=== PATIENT | female | born 1945 | race Caucasian/White ===

== ENCOUNTER 2016-04-03 16:55 | Inpatient (IN) | payer OTHER ==
[~2016-04-03] VITALS: Ht 160 cm; Wt 70.9 kg
[~2016-04-03 16:55] MED LIST: ADVAIR 250/501 DISK IH; AMLODIPINE BESYL5 MG PO; AZITHROMYCIN500 M1 PO; CALCIUM 500 MG1 EACH PO; LEVAQUIN750 MG PO; LISINOPRIL20 MG PO; LITE COAT ASPI325 M1 PO; ONE DAILY1 EAC3 PO; PREDNISONE10 MG PO; PROVENTIL,2.5 MG/3 M IH; RANITIDINE HCL150 MG PO; SPIRIVA1 INHALATI IH; VITAMIN B-6100 MG PO; VITAMIN B12 100MCG PO; VITAMIN D31000 UNIT PO
[2016-04-03 17:20] LABS: MCH 28.7 PG (29.0-34.0); MCHC 33.8 G/DL (30.0-36.0); MCV 84.8 FL (83-99); MEAN PLAT.VOLUME 9.1 uM^3 (9.5-12.4); PLATELET COUNT 390 K/uL (156-360); RBC DIS.WIDTH-CV 13.8 % (11.8-14.6); RBC DIS.WIDTH-SD 42.5 % (39-53); RED BLOOD COUNT 4.95 M/uL (3.80-5.20); WHITE BLOOD COUNT 8.8 K/uL (4.1-10.2)
[2016-04-03 17:30] LABS: BASOPHIL COUNT 0.1 K/uL (0-0.1); EOSINOPHIL (%) 2.2 % (0-5); EOSINOPHIL COUNT 0.2 K/uL (0-0.3); IMMATURE GRANULOCYTE (%) 0.2 % (0.0-0.7); IMMATURE GRANULOCYTE COUNT 0.2 K/uL; LYMPHOCYTE COUNT 1.7 K/uL (1.0-2.8); NEUTROPHIL (%) 66.2 % (45-76); NEUTROPHIL COUNT 5.8 K/uL (1.8-6.4)
[2016-04-03 17:31] LABS: CHLORIDE 105 mEq/L (99-109); POTASSIUM 4.2 mEq/L (3.7-5.4); SODIUM 137 mEq/L (136-147)
[2016-04-03 17:33] LABS: GLUCOSE 107 mg/dL (70-99)
[2016-04-03 17:38] LABS: D-DIMER ELISA 0.43 mg/L FEU (< 0.57)
[2016-04-03 17:40] LABS: BASE EXCESS 0 mEq/L (-3 to +3); BICARBONATE 23.9 mEq/L (22-26); CARBOXY HGB 2.8 % (0-5); METHEMOGLOBIN 1.1 % (0-1.5); PCO2 36 mm Hg (35-45); PO2 59 mm Hg (80-100); pH 7.43 (7.35-7.45)
[2016-04-03 17:41] LABS: COMMENTS - BLOOD GASES A+C+; DEVICE NC; MECHANICAL RATE 22 resp/min; O2 FLOW 3 L/MIN; SITE LR
[2016-04-03 17:42] LABS: ALKALINE PHOSPHATASE 71 IU/L (3-129); GFR ESTIMATE (CALCULATED) > 59 mL/min/; TROP-I INTERPRETATION NEGATIVE; TROPONIN-I < 0.01 ng/mL (0.0-0.30)
[2016-04-03 17:43] LABS: DIRECT BILIRUBIN 0.2 mg/dL (0.0-0.3); UREA NITROGEN (BUN) 14 mg/dL (9-23)
[2016-04-03 17:50] LABS: ANION GAP 12 MEQ/L (2-14)
[2016-04-03 18:01] LABS: TOTAL BILIRUBIN 0.3 mg/dL (0.0-1.0)
[2016-04-03] MEDS ORDERED: LEVAQUIN500 MG PO (19:47)
[2016-04-03] MEDS ORDERED: NORVASC10 MG PO (19:48)
[2016-04-03] MEDS ORDERED: SIMVASTATIN20 MG PO (19:52)
[2016-04-03] MEDS ORDERED: MONTELUKAST SOD10 MG PO (19:53)
[2016-04-03] MEDS ORDERED: SPIRIVA1 INHALATI IH (19:53)
[2016-04-03] MEDS ORDERED: VENTOLIN HFA18 GM IH (19:54)
[2016-04-03 21:02] VITALS: BP 135/56
[2016-04-03 21:32] VITALS: BP 125/62
[2016-04-03 22:03] VITALS: BP 122/56
[2016-04-03 22:32] VITALS: BP 139/57
[2016-04-03 23:02] VITALS: BP 125/68
[2016-04-04] VITALS: BP 136/65
[2016-04-04 01:51] LABS: INFLUENZA A VIRAL ANTIGEN NEGATIVE; INFLUENZA B VIRAL ANTIGEN NEGATIVE
[2016-04-04 04:04] VITALS: BP 136/64
[2016-04-04 07:53] LABS: INTERNAL CONTROL VALID? YES
[2016-04-04 08:24] VITALS: BP 142/66
[2016-04-04 08:27] LABS: EOSINOPHIL (%) 0 % (0-5); HEMATOCRIT 39.2 % (36.0-46.0); IMMATURE GRANULOCYTE (%) 0.2 % (0.0-0.7); LYMPHOCYTE COUNT 0.5 K/uL (1.0-2.8); MCH 28.7 PG (29.0-34.0); MCHC 33.4 G/DL (30.0-36.0); MCV 85.8 FL (83-99); MEAN PLAT.VOLUME 9.5 uM^3 (9.5-12.4); MONOCYTE (%) 0.7 % (3-12); MONOCYTE COUNT 0.1 K/uL (0-0.8); NEUTROPHIL COUNT 8.2 K/uL (1.8-6.4); PLATELET COUNT 378 K/uL (156-360); RBC DIS.WIDTH-CV 13.9 % (11.8-14.6); RBC DIS.WIDTH-SD 43.3 % (39-53); RED BLOOD COUNT 4.57 M/uL (3.80-5.20); WHITE BLOOD COUNT 8.8 K/uL (4.1-10.2)
[2016-04-04 08:49] LABS: ANION GAP 11 MEQ/L (2-14); CHLORIDE 103 MEQ/L (99-109); GFR ESTIMATE (CALCULATED) > 59 mL/min/; POTASSIUM 4.5 MEQ/L (3.7-5.4); SAMPLE HEMOLYSIS CHECK 0; SAMPLE ICTERIC CHECK 0; SAMPLE LIPEMIA CHECK 0; SODIUM 135 MEQ/L (136-147); UREA NITROGEN (BUN) 20 mg/dL (9-23)
[2016-04-04 08:50] LABS: GLUCOSE 177 mg/dL (70-99)
[2016-04-04 12:49] VITALS: BP 152/69
[2016-04-04 17:12] VITALS: BP 140/66
[2016-04-04 20:20] VITALS: BP 141/64
[2016-04-05 00:23] VITALS: BP 144/64
[2016-04-05 03:20] VITALS: BP 139/63
[2016-04-05 08:09] VITALS: BP 135/69
[2016-04-05 11:31] VITALS: BP 130/60
[2016-04-05 16:14] VITALS: BP 124/58
[2016-04-05 20:00] VITALS: BP 120/56
[2016-04-06] VITALS: BP 122/59
[2016-04-06 04:00] VITALS: BP 116/57
[2016-04-06 07:35] LABS: EOSINOPHIL (%) 0 % (0-5); HEMATOCRIT 37.5 % (36.0-46.0); IMMATURE GRANULOCYTE (%) 0.4 % (0.0-0.7); IMMATURE GRANULOCYTE COUNT 0.1 K/uL; LYMPHOCYTE COUNT 0.5 K/uL (1.0-2.8); MCH 28.5 PG (29.0-34.0); MCHC 32.8 G/DL (30.0-36.0); MEAN PLAT.VOLUME 9.7 uM^3 (9.5-12.4); MONOCYTE (%) 4.2 % (3-12); MONOCYTE COUNT 0.6 K/uL (0-0.8); NEUTROPHIL (%) 91.6 % (45-76); NEUTROPHIL COUNT 13.2 K/uL (1.8-6.4); PLATELET COUNT 348 K/uL (156-360); RBC DIS.WIDTH-CV 14.4 % (11.8-14.6); RBC DIS.WIDTH-SD 45.7 % (39-53); RED BLOOD COUNT 4.31 M/uL (3.80-5.20)
[2016-04-06 07:39] LABS: WHITE BLOOD COUNT 14.4 K/uL (4.1-10.2)
[2016-04-06 07:41] LABS: ANION GAP 9 MEQ/L (2-14); CHLORIDE 104 MEQ/L (99-109); GFR ESTIMATE (CALCULATED) > 59 mL/min/; GLUCOSE 124 mg/dL (70-99); POTASSIUM 4.6 MEQ/L (3.7-5.4); SAMPLE HEMOLYSIS CHECK 0; SAMPLE ICTERIC CHECK 0; SAMPLE LIPEMIA CHECK 0; SODIUM 137 MEQ/L (136-147); UREA NITROGEN (BUN) 23 mg/dL (9-23)
[2016-04-06 09:37] VITALS: BP 140/64
[2016-04-06 11:30] VITALS: BP 133/59
[2016-04-06] MEDS ORDERED: AUGMENTIN875 MG PO (12:30)
[2016-04-06] MEDS ORDERED: AZITHROMYCIN500 M1 PO (12:30)
== END 2016-04-06 16:35 | disposition home health service (06) | DRG 190 ==
LOC: EME 16:55 → EDOF 20:39 → 4SOUTH 20:39
PROVIDERS: Emergency Medicine; Internal Medicine
DX: J44.0 Chronic obstructive pulmonary disease with (acute) lower respiratory infection (principal); J18.9 Pneumonia, unspecified organism; J44.1 Chronic obstructive pulmonary disease with (acute) exacerbation; J96.01 Acute respiratory failure with hypoxia; J45.901 Unspecified asthma with (acute) exacerbation; I10 Essential (primary) hypertension; E78.5 Hyperlipidemia, unspecified; K21.9 Gastro-esophageal reflux disease without esophagitis; E78.00 Pure hypercholesterolemia, unspecified; I25.10 Atherosclerotic heart disease of native coronary artery without angina pectoris; F17.200 Nicotine dependence, unspecified, uncomplicated; Z66 Do not resuscitate; Z85.42 Personal history of malignant neoplasm of other parts of uterus
CPT/HCPCS: 36600; 71010; 71020; 80048; 80076; 82803; 83605; 83880; 84484; 85025; 85027; 85379; 87040; 87070; 87205; 87449; 87502; 92610 GN; 93005; 94640; 94640 76; 94644; 94799; 99202; 99281; 99285; J0456; J0692; J0696; J1100; J1644; J2920; J2930; J7050

== ENCOUNTER 2016-06-02 19:02 | Inpatient (IN) | payer OTHER ==
[~2016-06-02] VITALS: Ht 160 cm; Wt 71.9 kg
[~2016-06-02 19:02] MED LIST changes: +AUGMENTIN875 MG PO; +LEVAQUIN500 MG PO; +MONTELUKAST SOD10 MG PO; +NORVASC10 MG PO; +SIMVASTATIN20 MG PO; +VENTOLIN HFA18 GM IH
[2016-06-02 19:49] LABS: HEMATOCRIT 43.5 % (36.0-46.0); MCH 28.9 PG (29.0-34.0); MCHC 33.8 G/DL (30.0-36.0); MCV 85.6 FL (83-99); MEAN PLAT.VOLUME 9.1 uM^3 (9.5-12.4); PLATELET COUNT 434 K/uL (156-360); RBC DIS.WIDTH-CV 13.6 % (11.8-14.6); RBC DIS.WIDTH-SD 42.5 % (39-53); RED BLOOD COUNT 5.08 M/uL (3.80-5.20); WHITE BLOOD COUNT 9.8 K/uL (4.1-10.2)
[2016-06-02 20:10] LABS: CHLORIDE 104 mEq/L (99-109); SODIUM 140 mEq/L (136-147)
[2016-06-02 20:12] LABS: GLUCOSE 123 mg/dL (70-99)
[2016-06-02 20:13] LABS: ANION GAP 13 MEQ/L (2-14)
[2016-06-02 20:16] LABS: GFR ESTIMATE (CALCULATED) > 59 mL/min/
[2016-06-02 20:17] LABS: UREA NITROGEN (BUN) 10 mg/dL (9-23)
[2016-06-02 20:24] LABS: TROP-I INTERPRETATION NEGATIVE; TROPONIN-I < 0.01 ng/mL (0.0-0.30)
[2016-06-02] MEDS ORDERED: LOVASTATIN40 MG PO (21:26)
[2016-06-02 23:16] VITALS: BP 161/69
[2016-06-03] VITALS (7 sets, daily range): BP systolic 129–151; BP diastolic 58–67
[2016-06-04] VITALS (7 sets, daily range): BP systolic 109–152; BP diastolic 53–72
[2016-06-04 07:30] LABS: EOSINOPHIL (%) 0 % (0-5); IMMATURE GRANULOCYTE (%) 0.4 % (0.0-0.7); IMMATURE GRANULOCYTE COUNT 0.1 K/uL; INSTRUMENT ABS NEUTROPHIL CT 14.7 K/uL; LYMPHOCYTE COUNT 0.7 K/uL (1.0-2.8); MCH 29.1 PG (29.0-34.0); MCHC 33.4 G/DL (30.0-36.0); MCV 87.2 FL (83-99); MEAN PLAT.VOLUME 9.4 uM^3 (9.5-12.4); MONOCYTE COUNT 0.3 K/uL (0-0.8); NEUTROPHIL (%) 93.2 % (45-76); NEUTROPHIL COUNT 14.7 K/uL (1.8-6.4); PLATELET COUNT 384 K/uL (156-360); RBC DIS.WIDTH-CV 14.5 % (11.8-14.6); RBC DIS.WIDTH-SD 46.5 % (39-53); RED BLOOD COUNT 4.36 M/uL (3.80-5.20)
[2016-06-04 07:37] LABS: ALKALINE PHOSPHATASE 62 IU/L (3-129); ANION GAP 10 MEQ/L (2-14); CHLORIDE 105 MEQ/L (99-109); GFR ESTIMATE (CALCULATED) > 59 mL/min/; GLUCOSE 156 mg/dL (70-99); POTASSIUM 4.3 MEQ/L (3.7-5.4); SAMPLE HEMOLYSIS CHECK 0; SAMPLE ICTERIC CHECK 0; SAMPLE LIPEMIA CHECK 0; SODIUM 138 MEQ/L (136-147); TOTAL BILIRUBIN 0.3 MG/DL (0.0-1.0); UREA NITROGEN (BUN) 16 mg/dL (9-23)
[2016-06-04 07:49] LABS: WHITE BLOOD COUNT 15.8 K/uL (4.1-10.2)
[2016-06-05 06:47] VITALS: BP 122/57
[2016-06-05 07:22] LABS: EOSINOPHIL (%) 0 % (0-5); HEMATOCRIT 39.5 % (36.0-46.0); IMMATURE GRANULOCYTE COUNT 0.2 K/uL; LYMPHOCYTE COUNT 0.7 K/uL (1.0-2.8); MCH 28.8 PG (29.0-34.0); MCHC 33.2 G/DL (30.0-36.0); MCV 86.8 FL (83-99); MEAN PLAT.VOLUME 9.2 uM^3 (9.5-12.4); MONOCYTE (%) 4.1 % (3-12); MONOCYTE COUNT 0.6 K/uL (0-0.8); NEUTROPHIL (%) 90.3 % (45-76); PLATELET COUNT 408 K/uL (156-360); RBC DIS.WIDTH-CV 14.5 % (11.8-14.6); RBC DIS.WIDTH-SD 46.1 % (39-53); RED BLOOD COUNT 4.55 M/uL (3.80-5.20); WHITE BLOOD COUNT 15.5 K/uL (4.1-10.2)
[2016-06-05 07:33] LABS: ALKALINE PHOSPHATASE 56 IU/L (3-129); ANION GAP 9 MEQ/L (2-14); CHLORIDE 103 MEQ/L (99-109); GFR ESTIMATE (CALCULATED) > 59 mL/min/; GLUCOSE 145 mg/dL (70-99); POTASSIUM 4.5 MEQ/L (3.7-5.4); SAMPLE HEMOLYSIS CHECK 0; SAMPLE ICTERIC CHECK 0; SAMPLE LIPEMIA CHECK 0; SODIUM 139 MEQ/L (136-147); TOTAL BILIRUBIN 0.3 MG/DL (0.0-1.0); UREA NITROGEN (BUN) 21 mg/dL (9-23)
[2016-06-05 11:19] VITALS: BP 133/63
[2016-06-05 15:49] VITALS: BP 142/65
[2016-06-05 20:18] VITALS: BP 132/78
[2016-06-06 00:05] VITALS: BP 141/65
[2016-06-06 06:43] LABS: EOSINOPHIL (%) 0 % (0-5); HEMATOCRIT 36.5 % (36.0-46.0); IMMATURE GRANULOCYTE COUNT 0.1 K/uL; INSTRUMENT ABS NEUTROPHIL CT 9.8 K/uL; LYMPHOCYTE COUNT 0.6 K/uL (1.0-2.8); MCHC 33.4 G/DL (30.0-36.0); MCV 86.7 FL (83-99); MEAN PLAT.VOLUME 9.3 uM^3 (9.5-12.4); MONOCYTE (%) 5.6 % (3-12); MONOCYTE COUNT 0.6 K/uL (0-0.8); NEUTROPHIL (%) 88.3 % (45-76); NEUTROPHIL COUNT 9.8 K/uL (1.8-6.4); PLATELET COUNT 379 K/uL (156-360); RBC DIS.WIDTH-CV 14.4 % (11.8-14.6); RBC DIS.WIDTH-SD 45.9 % (39-53); RED BLOOD COUNT 4.21 M/uL (3.80-5.20); WHITE BLOOD COUNT 11.1 K/uL (4.1-10.2)
[2016-06-06 07:10] VITALS: BP 125/58
[2016-06-06 07:14] LABS: ANION GAP 10 MEQ/L (2-14); CHLORIDE 104 MEQ/L (99-109); GFR ESTIMATE (CALCULATED) > 59 mL/min/; GLUCOSE 119 mg/dL (70-99); POTASSIUM 4.4 MEQ/L (3.7-5.4); SAMPLE HEMOLYSIS CHECK 0; SAMPLE ICTERIC CHECK 0; SAMPLE LIPEMIA CHECK 0; SODIUM 138 MEQ/L (136-147); UREA NITROGEN (BUN) 22 mg/dL (9-23)
[2016-06-06 11:02] VITALS: BP 158/69
[2016-06-06 16:09] VITALS: BP 168/74
[2016-06-07 00:48] VITALS: BP 163/68
[2016-06-07 02:30] VITALS: BP 135/78
[2016-06-07 07:51] VITALS: BP 135/63
[2016-06-07 08:20] LABS: EOSINOPHIL (%) 0 % (0-5); IMMATURE GRANULOCYTE (%) 1.4 % (0.0-0.7); IMMATURE GRANULOCYTE COUNT 0.2 K/uL; INSTRUMENT ABS NEUTROPHIL CT 9.8 K/uL; MCH 29.1 PG (29.0-34.0); MCHC 33.5 G/DL (30.0-36.0); MCV 86.9 FL (83-99); MEAN PLAT.VOLUME 9.5 uM^3 (9.5-12.4); MONOCYTE (%) 9.1 % (3-12); MONOCYTE COUNT 1.1 K/uL (0-0.8); NEUTROPHIL (%) 81.3 % (45-76); NEUTROPHIL COUNT 9.8 K/uL (1.8-6.4); PLATELET COUNT 402 K/uL (156-360); RBC DIS.WIDTH-CV 14.4 % (11.8-14.6); RBC DIS.WIDTH-SD 46.2 % (39-53); RED BLOOD COUNT 4.26 M/uL (3.80-5.20)
[2016-06-07 08:40] LABS: ANION GAP 10 MEQ/L (2-14); CHLORIDE 103 MEQ/L (99-109); GFR ESTIMATE (CALCULATED) > 59 mL/min/; GLUCOSE 101 mg/dL (70-99); POTASSIUM 4.2 MEQ/L (3.7-5.4); SAMPLE HEMOLYSIS CHECK 0; SAMPLE ICTERIC CHECK 0; SAMPLE LIPEMIA CHECK 0; SODIUM 139 MEQ/L (136-147); UREA NITROGEN (BUN) 22 mg/dL (9-23)
[2016-06-07] MEDS ORDERED: CEFTIN500 MG PO (10:22)
[2016-06-07] MEDS ORDERED: PREDNISONE10 MG PO (10:22)
[2016-06-07] MEDS ORDERED: PROVENTIL,2.5 MG/3 M IH (11:16)
== END 2016-06-07 14:30 | disposition home or self-care (01) | DRG 190 ==
LOC: EME 19:02 → EDOF 21:31 → 5WEST 22:52 → 2EAST 06-03 08:52
PROVIDERS: Hospitalist
DX: J44.0 Chronic obstructive pulmonary disease with (acute) lower respiratory infection (principal); J96.01 Acute respiratory failure with hypoxia; J98.11 Atelectasis; I10 Essential (primary) hypertension; J20.9 Acute bronchitis, unspecified; I73.9 Peripheral vascular disease, unspecified; K21.9 Gastro-esophageal reflux disease without esophagitis; E78.5 Hyperlipidemia, unspecified; K44.9 Diaphragmatic hernia without obstruction or gangrene; Z99.81 Dependence on supplemental oxygen; Z87.891 Personal history of nicotine dependence; Z82.49 Family history of ischemic heart disease and other diseases of the circulatory system; Z82.3 Family history of stroke; Z80.42 Family history of malignant neoplasm of prostate
CPT/HCPCS: 71020; 71250; 80048; 80053; 83605; 84484; 85025; 85027; 87040; 87070; 87205; 93005; 94640; 94640 76; 94760; 94799; 99202; 99281; 99284; G0378; J0696; J2930; J7050; J7512

== ENCOUNTER 2016-09-12 16:14 | Inpatient (IN) | payer OTHER ==
[~2016-09-12] VITALS: Ht 160 cm; Wt 71.8 kg
[~2016-09-12 16:14] MED LIST changes: +CEFTIN500 MG PO; +LOVASTATIN40 MG PO
[2016-09-12 17:12] LABS: HEMATOCRIT 40.6 % (36.0-46.0); MCHC 33.7 G/DL (30.0-36.0); PLATELET COUNT 384 K/uL (156-360); RBC DIS.WIDTH-CV 13.7 % (11.8-14.6); RBC DIS.WIDTH-SD 43.7 % (39-53); RED BLOOD COUNT 4.72 M/uL (3.80-5.20); WHITE BLOOD COUNT 5.4 K/uL (4.1-10.2)
[2016-09-12 17:21] LABS: CHLORIDE 104 mEq/L (99-109); POTASSIUM 4.3 mEq/L (3.7-5.4); SODIUM 137 mEq/L (136-147)
[2016-09-12 17:24] LABS: GLUCOSE 168 mg/dL (70-99)
[2016-09-12 17:25] LABS: ANION GAP 10 MEQ/L (2-14); TOTAL BILIRUBIN 0.4 mg/dL (0.0-1.0)
[2016-09-12 17:27] LABS: ALKALINE PHOSPHATASE 75 IU/L (3-129); GFR ESTIMATE (CALCULATED) 58 mL/min/
[2016-09-12 17:28] LABS: UREA NITROGEN (BUN) 10 mg/dL (9-23)
[2016-09-12 17:31] LABS: LIPASE 17 U/L (1.0-51.0)
[2016-09-12 17:33] LABS: TROP-I INTERPRETATION NEGATIVE; TROPONIN-I < 0.01 ng/mL (0.0-0.30)
[2016-09-12] MEDS ORDERED: DUONEB 2.5-0.5 M3 ML AEROSOL (19:49)
[2016-09-12] MEDS ORDERED: BREO ELLIPTA I1 EACH IH (19:50)
[2016-09-12] MEDS ORDERED: INCRUSE ELLI62.5 MCG IH (19:50)
[2016-09-12 19:51] LABS: ADD MIUA? YES; BILIRUBIN NEGATIVE; BLOOD NEGATIVE; COLOR STRAW ((YELLOW)); GLUCOSE (STRIP) NEGATIVE; KETONES NEGATIVE; LEUKOCYTES TRACE; NITRITE NEGATIVE; PROTEIN (STRIP) NEGATIVE; SPECIFIC GRAVITY 1.005 (1.000-1.030); UROBILINOGEN 0.2 MG/DL (0.2-1.0)
[2016-09-12] MEDS ORDERED: OMEPRAZOLE40 M1 PO (19:51)
[2016-09-12 19:54] LABS: BACTERIA NONE SEEN /HPF; EPITHELIAL CELLS RARE /HPF; MUCUS NONE SEEN /LPF; RED BLOOD CELLS 0-5 /HPF (0-5); UCUL ADDED? NO; WHITE BLOOD CELLS 0-5 /HPF (0-5)
[2016-09-12 21:42] LABS: D-DIMER ELISA 0.64 mg/L FEU (< 0.57)
[2016-09-12 22:50] VITALS: BP 182/85
[2016-09-13 04:00] VITALS: BP 125/58
[2016-09-13 06:43] LABS: HEMATOCRIT 39.4 % (36.0-46.0); MCH 29.9 PG (29.0-34.0); MCHC 34.3 G/DL (30.0-36.0); MCV 87.2 FL (83-99); MEAN PLAT.VOLUME 9.4 uM^3 (9.5-12.4); PLATELET COUNT 373 K/uL (156-360); RBC DIS.WIDTH-SD 44.7 % (39-53); RED BLOOD COUNT 4.52 M/uL (3.80-5.20)
[2016-09-13 07:49] VITALS: BP 125/59
[2016-09-13 08:22] LABS: ANION GAP 14 MEQ/L (2-14); CHLORIDE 99 MEQ/L (99-109); GFR ESTIMATE (CALCULATED) 58 mL/min/; GLUCOSE 175 mg/dL (70-99); POTASSIUM 4.9 MEQ/L (3.7-5.4); SAMPLE HEMOLYSIS CHECK 0; SAMPLE ICTERIC CHECK 0; SAMPLE LIPEMIA CHECK 0; SODIUM 134 MEQ/L (136-147); UREA NITROGEN (BUN) 14 mg/dL (9-23)
[2016-09-13 11:13] VITALS: BP 128/62
[2016-09-13 15:42] VITALS: BP 127/58
[2016-09-13 19:51] VITALS: BP 115/57
[2016-09-13 23:57] VITALS: BP 107/53
[2016-09-14 03:32] VITALS: BP 111/59
[2016-09-14 07:48] VITALS: BP 157/79
[2016-09-14] MEDS ORDERED: PREDNISONE10 MG PO ×3 (10:47→11:18)
[2016-09-14] MEDS ORDERED: LEVAQUIN250 MG PO ×3 (10:47→11:18)
== END 2016-09-14 13:21 | disposition home or self-care (01) | DRG 190 ==
LOC: EME 16:14 → EDOF 20:59 → 5SOUTH 22:30
PROVIDERS: Hospitalist; Physician Assistant
DX: J44.1 Chronic obstructive pulmonary disease with (acute) exacerbation (principal); J44.0 Chronic obstructive pulmonary disease with (acute) lower respiratory infection; J20.9 Acute bronchitis, unspecified; E78.5 Hyperlipidemia, unspecified; I10 Essential (primary) hypertension; I25.10 Atherosclerotic heart disease of native coronary artery without angina pectoris; K44.9 Diaphragmatic hernia without obstruction or gangrene; I73.9 Peripheral vascular disease, unspecified; J96.21 Acute and chronic respiratory failure with hypoxia; K21.9 Gastro-esophageal reflux disease without esophagitis; R00.0 Tachycardia, unspecified; Z87.891 Personal history of nicotine dependence; Z99.81 Dependence on supplemental oxygen; Z79.82 Long term (current) use of aspirin
CPT/HCPCS: 71010; 71020; 71275; 80048; 80053; 81003; 83690; 84484; 85027; 85379; 87070; 87205; 93005; 94640; 94640 76; 94799; 99202; 99281; 99285; J0696; J2930; J7050

== ENCOUNTER 2016-09-30 16:36 | Emergency (ER) | payer OTHER ==
[~2016-09-30] VITALS: Ht 160 cm; Wt 71.3 kg
[~2016-09-30 16:36] MED LIST changes: +BREO ELLIPTA I1 EACH IH; +DUONEB 2.5-0.5 M3 ML AEROSOL; +INCRUSE ELLI62.5 MCG IH; +LEVAQUIN250 MG PO; +OMEPRAZOLE40 M1 PO
[2016-09-30 17:42] LABS: HEMATOCRIT 40.5 % (36.0-46.0); MCH 28.8 PG (29.0-34.0); MCHC 33.6 G/DL (30.0-36.0); MCV 85.8 FL (83-99); MEAN PLAT.VOLUME 8.9 uM^3 (9.5-12.4); PLATELET COUNT 296 K/uL (156-360); RBC DIS.WIDTH-CV 14.1 % (11.8-14.6); RBC DIS.WIDTH-SD 44.4 % (39-53); RED BLOOD COUNT 4.72 M/uL (3.80-5.20); WHITE BLOOD COUNT 8.3 K/uL (4.1-10.2)
[2016-09-30 17:50] LABS: CHLORIDE 107 mEq/L (99-109); POTASSIUM 4.2 mEq/L (3.7-5.4); SODIUM 139 mEq/L (136-147)
[2016-09-30 17:51] LABS: GLUCOSE 185 mg/dL (70-99)
[2016-09-30 17:53] LABS: ANION GAP 12 MEQ/L (2-14)
[2016-09-30 17:55] LABS: GFR ESTIMATE (CALCULATED) 58 mL/min/
[2016-09-30 17:56] LABS: UREA NITROGEN (BUN) 16 mg/dL (9-23)
[2016-09-30 18:04] LABS: TROP-I INTERPRETATION NEGATIVE; TROPONIN-I < 0.01 ng/mL (0.0-0.30)
[2016-09-30] MEDS ORDERED: ALBUTEROL2.5 MG/3 M IH (20:28)
[2016-09-30] MEDS ORDERED: DOXYCYCLINE HY100 MG PO (20:28)
[2016-09-30] MEDS ORDERED: PREDNISONE20 MG PO (20:28)
[2016-09-30] MEDS ORDERED: VENTOLIN HFA18 GM IH (20:28)
[2016-09-30 20:52] LABS: TROP-I INTERPRETATION NEGATIVE; TROPONIN-I < 0.01 ng/mL (0.0-0.30)
[2016-09-30 21:40] VITALS: BP 131/63
== END 2016-09-30 21:40 | disposition home or self-care (01) ==
LOC: EME 16:36
PROVIDERS: Emergency Medicine
DX: J44.1 Chronic obstructive pulmonary disease with (acute) exacerbation (principal); J20.9 Acute bronchitis, unspecified; J44.0 Chronic obstructive pulmonary disease with (acute) lower respiratory infection; K21.9 Gastro-esophageal reflux disease without esophagitis; I10 Essential (primary) hypertension; Z87.891 Personal history of nicotine dependence
CPT/HCPCS: 71020; 80048; 84484; 85027; 93005; 94640; 99281; 99285; J7512

== ENCOUNTER 2016-12-04 01:11 | Inpatient (IN) | payer OTHER ==
[~2016-12-04] VITALS: Ht 160 cm; Wt 73.0 kg
[~2016-12-04 01:11] MED LIST changes: +ALBUTEROL2.5 MG/3 M IH; +DOXYCYCLINE HY100 MG PO; +PREDNISONE20 MG PO
[2016-12-04 02:06] LABS: HEMATOCRIT 38.4 % (36.0-46.0); MCH 29.1 PG (29.0-34.0); MCHC 33.9 G/DL (30.0-36.0); MCV 86.1 FL (83-99); MEAN PLAT.VOLUME 8.9 uM^3 (9.5-12.4); PLATELET COUNT 388 K/uL (156-360); RBC DIS.WIDTH-CV 14.6 % (11.8-14.6); RBC DIS.WIDTH-SD 45.8 % (39-53); RED BLOOD COUNT 4.46 M/uL (3.80-5.20); WHITE BLOOD COUNT 13.4 K/uL (4.1-10.2)
[2016-12-04 02:20] LABS: CHLORIDE 103 mEq/L (99-109); POTASSIUM 4.2 mEq/L (3.7-5.4); SODIUM 137 mEq/L (136-147)
[2016-12-04 02:22] LABS: GLUCOSE 145 mg/dL (70-99)
[2016-12-04 02:23] LABS: ANION GAP 14 MEQ/L (2-14)
[2016-12-04 02:25] LABS: GFR ESTIMATE (CALCULATED) 52 mL/min/
[2016-12-04 02:26] LABS: UREA NITROGEN (BUN) 15 mg/dL (9-23)
[2016-12-04 03:57] LABS: TROP-I INTERPRETATION NEGATIVE; TROPONIN-I < 0.01 ng/mL (0.0-0.30)
[2016-12-04] MEDS ORDERED: TESSALON200 MG PO (04:30)
[2016-12-04] MEDS ORDERED: AUGMENTIN875 MG PO (04:30)
[2016-12-04] MEDS ORDERED: PREDNISONE10 MG PO (04:30)
[2016-12-04 11:14] VITALS: BP 151/68
[2016-12-04 20:54] VITALS: BP 177/75
[2016-12-05 00:32] VITALS: BP 136/67
[2016-12-05 04:24] VITALS: BP 133/59
[2016-12-05 06:45] LABS: EOSINOPHIL (%) 0 % (0-5); HEMATOCRIT 36.3 % (36.0-46.0); IMMATURE GRANULOCYTE (%) 0.7 % (0.0-0.7); IMMATURE GRANULOCYTE COUNT 0.1 K/uL; INSTRUMENT ABS NEUTROPHIL CT 14.9 K/uL; LYMPHOCYTE COUNT 0.7 K/uL (1.0-2.8); MCH 29.9 PG (29.0-34.0); MCHC 34.2 G/DL (30.0-36.0); MCV 87.5 FL (83-99); MEAN PLAT.VOLUME 9.2 uM^3 (9.5-12.4); MONOCYTE (%) 3.5 % (3-12); MONOCYTE COUNT 0.6 K/uL (0-0.8); NEUTROPHIL (%) 91.5 % (45-76); NEUTROPHIL COUNT 14.9 K/uL (1.8-6.4); PLATELET COUNT 365 K/uL (156-360); RBC DIS.WIDTH-CV 14.9 % (11.8-14.6); RBC DIS.WIDTH-SD 47.8 % (39-53); RED BLOOD COUNT 4.15 M/uL (3.80-5.20); WHITE BLOOD COUNT 16.3 K/uL (4.1-10.2)
[2016-12-05 07:12] LABS: ALKALINE PHOSPHATASE 55 IU/L (3-129); ANION GAP 12 MEQ/L (2-14); CHLORIDE 99 MEQ/L (99-109); GFR ESTIMATE (CALCULATED) > 59 mL/min/; GLUCOSE 160 mg/dL (70-99); POTASSIUM 4.5 MEQ/L (3.7-5.4); SAMPLE HEMOLYSIS CHECK 0; SAMPLE ICTERIC CHECK 0; SAMPLE LIPEMIA CHECK 0; SODIUM 134 MEQ/L (136-147); TOTAL BILIRUBIN 0.3 MG/DL (0.0-1.0); UREA NITROGEN (BUN) 16 mg/dL (9-23)
[2016-12-05 09:40] VITALS: BP 134/60
[2016-12-05 11:51] VITALS: BP 145/66
[2016-12-05 13:25] LABS: INFLUENZA A VIRAL ANTIGEN NEGATIVE; INFLUENZA B VIRAL ANTIGEN NEGATIVE
[2016-12-05 16:48] VITALS: BP 117/57
[2016-12-05 20:02] VITALS: BP 157/58
[2016-12-06 00:17] VITALS: BP 126/53
[2016-12-06 06:10] LABS: EOSINOPHIL (%) 0 % (0-5); HEMATOCRIT 35.3 % (36.0-46.0); IMMATURE GRANULOCYTE COUNT 0.2 K/uL; LYMPHOCYTE COUNT 0.6 K/uL (1.0-2.8); MCH 28.9 PG (29.0-34.0); MCHC 33.4 G/DL (30.0-36.0); MCV 86.5 FL (83-99); MEAN PLAT.VOLUME 9.1 uM^3 (9.5-12.4); MONOCYTE (%) 2.6 % (3-12); MONOCYTE COUNT 0.5 K/uL (0-0.8); PLATELET COUNT 351 K/uL (156-360); RBC DIS.WIDTH-CV 14.7 % (11.8-14.6); RBC DIS.WIDTH-SD 47.1 % (39-53); RED BLOOD COUNT 4.08 M/uL (3.80-5.20); WHITE BLOOD COUNT 17.2 K/uL (4.1-10.2)
[2016-12-06 07:19] LABS: ANION GAP 9 MEQ/L (2-14); CHLORIDE 100 MEQ/L (99-109); GFR ESTIMATE (CALCULATED) 58 mL/min/; GLUCOSE 171 mg/dL (70-99); POTASSIUM 4.6 MEQ/L (3.7-5.4); SAMPLE HEMOLYSIS CHECK 0; SAMPLE ICTERIC CHECK 0; SAMPLE LIPEMIA CHECK 0; SODIUM 134 MEQ/L (136-147); UREA NITROGEN (BUN) 22 mg/dL (9-23)
[2016-12-06 07:29] VITALS: BP 113/58
[2016-12-06] MEDS ORDERED: PREDNISONE10 MG PO (08:58)
[2016-12-06] MEDS ORDERED: CEFTIN500 MG PO (08:58)
== END 2016-12-06 13:20 | disposition home or self-care (01) | DRG 190 ==
LOC: EME 01:11 → 5SOUTH 07:16 → EDOF 07:16 → ENRESERV 07:18 → CANRESERV 07:47 → ENRESERV 07:47 → 5SOUTH 10:17 → CANRESERV 12-05 10:11 → ENRESERV 12-05 10:11 → 5SOUTH 12-06 13:20
PROVIDERS: Hospitalist
DX: J44.0 Chronic obstructive pulmonary disease with (acute) lower respiratory infection (principal); J44.1 Chronic obstructive pulmonary disease with (acute) exacerbation; J20.9 Acute bronchitis, unspecified; F17.200 Nicotine dependence, unspecified, uncomplicated; J96.01 Acute respiratory failure with hypoxia; K21.9 Gastro-esophageal reflux disease without esophagitis; I10 Essential (primary) hypertension; E78.5 Hyperlipidemia, unspecified; I25.10 Atherosclerotic heart disease of native coronary artery without angina pectoris; Z85.42 Personal history of malignant neoplasm of other parts of uterus
CPT/HCPCS: 71020; 80048; 80053; 83880; 84484; 85025; 85027; 87502; 93005; 94010; 94640; 94640 76; 94760; 94799; 99202; 99281; 99285; G0378; J0456; J0696; J1650; J2930; J7050; J7512

== ENCOUNTER 2017-02-15 22:22 | Observation (INO) | payer OTHER ==
[~2017-02-15] VITALS: Ht 154.9 cm; Wt 78.8 kg
[~2017-02-15 22:22] MED LIST changes: +TESSALON200 MG PO
[2017-02-15 23:15] LABS: MCH 29.5 PG (29.0-34.0); MCHC 34.7 G/DL (30.0-36.0); MCV 84.9 FL (83-99); MEAN PLAT.VOLUME 8.4 uM^3 (9.5-12.4); PLATELET COUNT 477 K/uL (156-360); RBC DIS.WIDTH-CV 13.2 % (11.8-14.6); RBC DIS.WIDTH-SD 41.1 % (39-53); RED BLOOD COUNT 4.24 M/uL (3.80-5.20); WHITE BLOOD COUNT 7.9 K/uL (4.1-10.2)
[2017-02-15 23:29] LABS: CHLORIDE 104 mEq/L (99-109); POTASSIUM 3.8 mEq/L (3.7-5.4); SODIUM 139 mEq/L (136-147)
[2017-02-15 23:31] LABS: GLUCOSE 105 mg/dL (70-99)
[2017-02-15 23:32] LABS: ANION GAP 14 MEQ/L (2-14)
[2017-02-15 23:33] LABS: TOTAL BILIRUBIN 0.2 mg/dL (0.0-1.0)
[2017-02-15 23:34] LABS: ALKALINE PHOSPHATASE 88 IU/L (3-129)
[2017-02-15 23:35] LABS: GFR ESTIMATE (CALCULATED) 58 mL/min/; TROP-I INTERPRETATION NEGATIVE; TROPONIN-I < 0.01 ng/mL (0.0-0.30)
[2017-02-15 23:36] LABS: UREA NITROGEN (BUN) 10 mg/dL (9-23)
[2017-02-16] MEDS ORDERED: DALIRESP500 MCG PO (00:56)
[2017-02-16 02:31] VITALS: BP 118/76
[2017-02-16 05:00] VITALS: BP 99/48
[2017-02-16 05:25] LABS: TROP-I INTERPRETATION NEGATIVE; TROPONIN-I < 0.01 ng/mL (0.0-0.30)
[2017-02-16 11:19] LABS: TROP-I INTERPRETATION NEGATIVE; TROPONIN-I < 0.01 ng/mL (0.0-0.30)
[2017-02-16 12:02] VITALS: BP 117/56
== END 2017-02-16 16:20 | disposition home or self-care (01) ==
LOC: EME 22:22 → EDOF 02-16 00:54 → ENRESERV 02-16 00:57 → 5WEST 02-16 02:19
PROVIDERS: Hospitalist; Physician Assistant; Physician Assistant Medical
DX: R07.9 Chest pain, unspecified (principal); K21.9 Gastro-esophageal reflux disease without esophagitis; J44.9 Chronic obstructive pulmonary disease, unspecified; R51 Headache; Z87.891 Personal history of nicotine dependence; I10 Essential (primary) hypertension; M85.80 Other specified disorders of bone density and structure, unspecified site; K76.0 Fatty (change of) liver, not elsewhere classified; I73.9 Peripheral vascular disease, unspecified; Z60.2 Problems related to living alone; Z79.82 Long term (current) use of aspirin; M79.89 Other specified soft tissue disorders; G89.29 Other chronic pain; M25.579 Pain in unspecified ankle and joints of unspecified foot; F41.9 Anxiety disorder, unspecified; R00.2 Palpitations; Z82.49 Family history of ischemic heart disease and other diseases of the circulatory system; Z85.42 Personal history of malignant neoplasm of other parts of uterus; Z90.710 Acquired absence of both cervix and uterus; Z80.42 Family history of malignant neoplasm of prostate; Z82.3 Family history of stroke; Z81.4 Family history of other substance abuse and dependence
CPT/HCPCS: 71010; 71275; 80053; 84484; 85027; 93005; 94640; 94640 76; 99202; 99281; 99285; G0378; J1650

== ENCOUNTER 2017-07-06 13:35 | Inpatient (IN) | payer OTHER ==
[~2017-07-06] VITALS: Ht 157.5 cm; Wt 71.2 kg
[~2017-07-06 13:35] MED LIST changes: +DALIRESP500 MCG PO
[2017-07-06 14:35] LABS: HEMATOCRIT 31.8 % (36.0-46.0); HEMOGLOBIN 10.5 G/DL (11.9-15.5); MCH 24.8 PG (29.0-34.0); MCV 75.2 FL (83-99); PLATELET COUNT 494 K/uL (156-360); RBC DIS.WIDTH-CV 17.1 % (11.8-14.6); RBC DIS.WIDTH-SD 42.5 % (39-53); RED BLOOD COUNT 4.23 M/uL (3.80-5.20); WHITE BLOOD COUNT 11.1 K/uL (4.1-10.2)
[2017-07-06 14:43] LABS: CHLORIDE 102 mEq/L (99-109); POTASSIUM 4.2 mEq/L (3.7-5.4); SODIUM 137 mEq/L (136-147)
[2017-07-06 14:45] LABS: GLUCOSE 115 mg/dL (70-99)
[2017-07-06 14:49] LABS: CREATININE 0.8 mg/dL (0.6-1.3); GFR ESTIMATE (CALCULATED) > 59 mL/min/; UREA NITROGEN (BUN) 12 mg/dL (9-23)
[2017-07-06 14:56] LABS: TROP-I INTERPRETATION NEGATIVE; TROPONIN-I < 0.01 ng/mL (0.0-0.30)
[2017-07-06] MEDS ORDERED: LOW DOSE ASPIRI81 M1 PO (18:42)
[2017-07-06] MEDS ORDERED: TESSALON200 MG PO (18:43)
[2017-07-06 19:00] LABS: ALBUMIN 4.5 g/dL (3.2-4.8)
[2017-07-06 19:05] LABS: TOTAL BILIRUBIN 0.4 mg/dL (0.0-1.0)
[2017-07-06 19:06] LABS: ALKALINE PHOSPHATASE 103 IU/L (3-129)
[2017-07-06 19:08] LABS: AST (GOT) 15 IU/L (2-34); DIRECT BILIRUBIN 0.3 mg/dL (0.0-0.3)
[2017-07-06 19:09] LABS: ALT (GPT) 20 IU/L (3-49)
[2017-07-06 19:50] LABS: IRON 143 MCG/DL (35-150); TRANSFERRIN SATUR. 45 % (20-55)
[2017-07-06 20:00] LABS: FERRITIN 980 NG/ML (10-291)
[2017-07-06 20:49] VITALS: BP 151/65
[2017-07-06 21:43] VITALS: BP 139/62
[2017-07-06 22:45] LABS: TROP-I INTERPRETATION NEGATIVE; TROPONIN-I < 0.01 ng/mL (0.0-0.30)
[2017-07-07] VITALS (7 sets, daily range): BP systolic 117–166; BP diastolic 57–71
[2017-07-07 03:53] LABS: CHLORIDE 104 mEq/L (99-109); POTASSIUM 4.1 mEq/L (3.7-5.4); SODIUM 135 mEq/L (136-147)
[2017-07-07 03:59] LABS: CREATININE 0.9 mg/dL (0.6-1.3); GFR ESTIMATE (CALCULATED) > 59 mL/min/
[2017-07-07 04:00] LABS: UREA NITROGEN (BUN) 18 mg/dL (9-23)
[2017-07-07 04:05] LABS: GLUCOSE 269 mg/dL (70-99); TROP-I INTERPRETATION NEGATIVE; TROPONIN-I < 0.01 ng/mL (0.0-0.30)
[2017-07-07 04:12] LABS: HEMOGLOBIN 9.8 G/DL (11.9-15.5); MCH 25.1 PG (29.0-34.0); MCHC 33.8 G/DL (30.0-36.0); MCV 74.4 FL (83-99); PLATELET COUNT 521 K/uL (156-360); RBC DIS.WIDTH-CV 17.1 % (11.8-14.6); RBC DIS.WIDTH-SD 41.7 % (39-53)
[2017-07-07 16:03] LABS: STOOL OCCULT BLD 1ST SPECIMEN NEGATIVE
[2017-07-08 04:00] VITALS: BP 116/58
[2017-07-08 07:34] VITALS: BP 114/83
[2017-07-08 09:30] VITALS: BP 149/62
[2017-07-08 15:18] VITALS: BP 142/65
[2017-07-08 23:46] VITALS: BP 130/61
[2017-07-09 03:34] VITALS: BP 146/67
[2017-07-09 07:58] VITALS: BP 130/56
[2017-07-09 17:43] VITALS: BP 126/59
[2017-07-10 01:33] VITALS: BP 165/74
[2017-07-10 07:45] VITALS: BP 150/65
[2017-07-10] MEDS ORDERED: LEVAQUIN750 MG PO (14:16)
[2017-07-10] MEDS ORDERED: PREDNISONE10 MG PO (14:16)
[2017-07-10 16:37] VITALS: BP 141/64
== END 2017-07-10 17:01 | disposition home or self-care (01) | DRG 190 ==
LOC: EME 13:35 → EDOF 18:14 → ENRESERV 18:25 → 5SOUTH 20:10 → ENPENDDIS 07-10 14:18 → 5SOUTH 07-10 17:01
PROVIDERS: Hospitalist
DX: J44.1 Chronic obstructive pulmonary disease with (acute) exacerbation (principal); J96.21 Acute and chronic respiratory failure with hypoxia; J20.9 Acute bronchitis, unspecified; J44.0 Chronic obstructive pulmonary disease with (acute) lower respiratory infection; I10 Essential (primary) hypertension; I25.10 Atherosclerotic heart disease of native coronary artery without angina pectoris; D50.9 Iron deficiency anemia, unspecified; R79.89 Other specified abnormal findings of blood chemistry; E78.5 Hyperlipidemia, unspecified; K21.9 Gastro-esophageal reflux disease without esophagitis; K76.0 Fatty (change of) liver, not elsewhere classified; M85.80 Other specified disorders of bone density and structure, unspecified site; I73.9 Peripheral vascular disease, unspecified; K44.9 Diaphragmatic hernia without obstruction or gangrene; Z87.891 Personal history of nicotine dependence; Z85.42 Personal history of malignant neoplasm of other parts of uterus; Z90.710 Acquired absence of both cervix and uterus; Z82.3 Family history of stroke; R07.9 Chest pain, unspecified
CPT/HCPCS: 71046; 71275; 80048; 80076; 82272; 82607; 82728; 83540; 84466; 84484; 85027; 93005; 93306; 94640; 94640 76; 94644; 94799; 99202; 99281; 99285; J0456; J0692; J2930

== ENCOUNTER 2017-07-19 18:24 | Inpatient (IN) | payer OTHER ==
[~2017-07-19] VITALS: Ht 160 cm; Wt 70.5 kg
[~2017-07-19 18:24] MED LIST changes: +LOW DOSE ASPIRI81 M1 PO
[2017-07-19 19:46] LABS: HEMATOCRIT 34.1 % (36.0-46.0); MCH 26.6 PG (29.0-34.0); MCHC 35.2 G/DL (30.0-36.0); MCV 75.6 FL (83-99); RBC DIS.WIDTH-CV 23.2 % (11.8-14.6); RBC DIS.WIDTH-SD 60.9 % (39-53); RED BLOOD COUNT 4.51 M/uL (3.80-5.20); WHITE BLOOD COUNT 16.3 K/uL (4.1-10.2)
[2017-07-19 19:56] LABS: CHLORIDE 90 MEQ/L (99-109); CREATININE 0.8 MG/DL (0.6-1.3); GFR ESTIMATE (CALCULATED) > 59 mL/min/; GLUCOSE 205 mg/dL (70-99); POTASSIUM 4.1 MEQ/L (3.7-5.4); SODIUM 121 MEQ/L (136-147); UREA NITROGEN (BUN) 19 mg/dL (9-23)
[2017-07-19 19:59] LABS: TROP-I INTERPRETATION NEGATIVE; TROPONIN-I < 0.01 ng/mL (0.0-0.30)
[2017-07-19 20:29] LABS: PLAT.SUFFICIENCY ADEQUATE; PLATELET CLUMPS PRESENT - PLATELET COUNT APPEARS ADQ.
[2017-07-19 20:30] LABS: PLATELET COUNT UNABLE TO REPORT K/uL (156-360)
[2017-07-19] MEDS ORDERED: PREDNISONE10 MG PO ×2 (20:41→20:42)
[2017-07-19] MEDS ORDERED: IMDUR30 MG PO (20:49)
[2017-07-19 21:27] LABS: CHLORIDE 93 MEQ/L (99-109); CREATININE 0.7 MG/DL (0.6-1.3); GFR ESTIMATE (CALCULATED) > 59 mL/min/; POTASSIUM 4.1 MEQ/L (3.7-5.4); SODIUM 125 MEQ/L (136-147); UREA NITROGEN (BUN) 17 mg/dL (9-23)
[2017-07-19 21:38] LABS: GLUCOSE 110 mg/dL (70-99)
[2017-07-20 00:31] VITALS: BP 134/60
[2017-07-20 01:28] LABS: ALKALINE PHOSPHATASE 58 IU/L (3-129); ALT (GPT) 23 IU/L (3-49); AST (GOT) 17 IU/L (2-34); DIRECT BILIRUBIN 0.1 mg/dL (0.0-0.3); TOTAL BILIRUBIN 0.5 MG/DL (0.0-1.0); TOTAL PROTEIN 6.4 G/DL (6.4-8.3)
[2017-07-20 02:49] LABS: CHLORIDE 95 MEQ/L (99-109); CREATININE 0.7 MG/DL (0.6-1.3); GFR ESTIMATE (CALCULATED) > 59 mL/min/; GLUCOSE 99 mg/dL (70-99); SODIUM 126 MEQ/L (136-147); UREA NITROGEN (BUN) 18 mg/dL (9-23)
[2017-07-20 03:36] VITALS: BP 119/56
[2017-07-20 03:48] LABS: URIC ACID 4.6 mg/dL (3.1-9.2)
[2017-07-20 06:44] LABS: HEMATOCRIT 30.1 % (36.0-46.0); HEMOGLOBIN 10.1 G/DL (11.9-15.5); MCH 25.7 PG (29.0-34.0); MCHC 33.6 G/DL (30.0-36.0); MCV 76.6 FL (83-99); PLATELET COUNT 301 K/uL (156-360); RBC DIS.WIDTH-CV 23.8 % (11.8-14.6); RBC DIS.WIDTH-SD 63.2 % (39-53); RED BLOOD COUNT 3.93 M/uL (3.80-5.20); WHITE BLOOD COUNT 13.5 K/uL (4.1-10.2)
[2017-07-20 07:09] LABS: CHLORIDE 100 MEQ/L (99-109); CREATININE 0.7 MG/DL (0.6-1.3); GFR ESTIMATE (CALCULATED) > 59 mL/min/; GLUCOSE 84 mg/dL (70-99); POTASSIUM 4.2 MEQ/L (3.7-5.4); SODIUM 131 MEQ/L (136-147); UREA NITROGEN (BUN) 16 mg/dL (9-23)
[2017-07-20 07:11] VITALS: BP 120/58
[2017-07-20 07:35] LABS: THYROTROPIN (TSH) 0.66 MIU/L (0.4-5.5)
[2017-07-20 11:04] VITALS: BP 128/61
[2017-07-20 12:13] LABS: CHLORIDE 100 MEQ/L (99-109); CREATININE 0.8 MG/DL (0.6-1.3); GFR ESTIMATE (CALCULATED) > 59 mL/min/; POTASSIUM 3.9 MEQ/L (3.7-5.4); SODIUM 131 MEQ/L (136-147); UREA NITROGEN (BUN) 17 mg/dL (9-23)
[2017-07-20 12:20] LABS: GLUCOSE 129 mg/dL (70-99)
[2017-07-20 16:09] VITALS: BP 122/60
[2017-07-20 19:29] VITALS: BP 120/62
[2017-07-20 21:07] LABS: APPEARANCE CLEAR ((CLEAR)); BILIRUBIN NEGATIVE; BLOOD NEGATIVE; COLOR STRAW ((YELLOW)); GLUCOSE (STRIP) NEGATIVE; KETONES NEGATIVE; LEUKOCYTES NEGATIVE; NITRITE NEGATIVE; PROTEIN (STRIP) NEGATIVE; SPECIFIC GRAVITY 1.011 (1.000-1.030); UCUL ADDED? NO; UROBILINOGEN 0.2 MG/DL (0.2-1.0)
[2017-07-21 00:19] VITALS: BP 144/56
[2017-07-21 04:23] VITALS: BP 110/55
[2017-07-21 06:17] LABS: HEMATOCRIT 32.1 % (36.0-46.0); HEMOGLOBIN 10.5 G/DL (11.9-15.5); MCH 26.1 PG (29.0-34.0); MCHC 32.7 G/DL (30.0-36.0); MCV 79.7 FL (83-99); PLATELET COUNT 282 K/uL (156-360); RBC DIS.WIDTH-CV 24.4 % (11.8-14.6); RBC DIS.WIDTH-SD 67.1 % (39-53); RED BLOOD COUNT 4.03 M/uL (3.80-5.20); WHITE BLOOD COUNT 12.8 K/uL (4.1-10.2)
[2017-07-21 06:32] LABS: BASOPHIL (%) 0.1 % (0-1); EOSINOPHIL (%) 0.2 % (0-5); IMMATURE GRANULOCYTE (%) 0.9 % (0.0-0.7); LYMPHOCYTE (%) 12.1 % (15-42); LYMPHOCYTE COUNT 1.6 K/uL (1.0-2.8); NEUTROPHIL (%) 78.7 % (45-76); NEUTROPHIL COUNT 10.1 K/uL (1.8-6.4)
[2017-07-21 06:36] LABS: CHLORIDE 101 MEQ/L (99-109); CREATININE 0.8 MG/DL (0.6-1.3); GFR ESTIMATE (CALCULATED) > 59 mL/min/; MAGNESIUM 2.3 mg/dl (1.3-2.7); POTASSIUM 4.2 MEQ/L (3.7-5.4); SODIUM 133 MEQ/L (136-147); UREA NITROGEN (BUN) 14 mg/dL (9-23)
[2017-07-21 06:52] LABS: GLUCOSE 75 mg/dL (70-99)
[2017-07-21 07:48] VITALS: BP 122/57
[2017-07-21 16:19] VITALS: BP 148/86
[2017-07-22 00:07] VITALS: BP 96/53
[2017-07-22 06:23] LABS: BASOPHIL (%) 0.1 % (0-1); EOSINOPHIL (%) 0 % (0-5); HEMOGLOBIN 10.2 G/DL (11.9-15.5); LYMPHOCYTE (%) 2.7 % (15-42); LYMPHOCYTE COUNT 0.4 K/uL (1.0-2.8); MCHC 32.9 G/DL (30.0-36.0); MCV 78.9 FL (83-99); MONOCYTE (%) 3.1 % (3-12); MONOCYTE COUNT 0.5 K/uL (0-0.8); NEUTROPHIL (%) 93.1 % (45-76); NEUTROPHIL COUNT 13.6 K/uL (1.8-6.4); PLATELET COUNT 299 K/uL (156-360); RBC DIS.WIDTH-CV 23.9 % (11.8-14.6); RBC DIS.WIDTH-SD 65.1 % (39-53); RED BLOOD COUNT 3.93 M/uL (3.80-5.20); WHITE BLOOD COUNT 14.6 K/uL (4.1-10.2)
[2017-07-22 07:03] LABS: CHLORIDE 100 MEQ/L (99-109); CREATININE 0.8 MG/DL (0.6-1.3); GFR ESTIMATE (CALCULATED) > 59 mL/min/; POTASSIUM 4.9 MEQ/L (3.7-5.4); SODIUM 133 MEQ/L (136-147); UREA NITROGEN (BUN) 18 mg/dL (9-23)
[2017-07-22 07:07] LABS: GLUCOSE 161 mg/dL (70-99)
[2017-07-22 07:18] VITALS: BP 119/60
[2017-07-22] MEDS ORDERED: OMNICEF300 MG PO (13:23)
[2017-07-22] MEDS ORDERED: SERTRALINE HCL25 MG PO (13:25)
[2017-07-22] MEDS ORDERED: MUCINEX600 MG PO (13:25)
[2017-07-23] MEDS ORDERED: XANAX0.5 MG PO (08:47)
== END 2017-07-22 16:45 | disposition home or self-care (01) | DRG 641 ==
LOC: EME 18:24 → EDOF 22:39 → 5SOUTH 22:39 → ENRESERV 22:40 → 5SOUTH 07-20 00:23
PROVIDERS: Hospitalist; Physician Assistant
DX: E87.1 Hypo-osmolality and hyponatremia (principal); J96.11 Chronic respiratory failure with hypoxia; J44.1 Chronic obstructive pulmonary disease with (acute) exacerbation; F41.1 Generalized anxiety disorder; T17.890A Other foreign object in other parts of respiratory tract causing asphyxiation, initial encounter; I10 Essential (primary) hypertension; D50.9 Iron deficiency anemia, unspecified; K21.9 Gastro-esophageal reflux disease without esophagitis; E78.5 Hyperlipidemia, unspecified; R63.1 Polydipsia; K76.0 Fatty (change of) liver, not elsewhere classified; I73.9 Peripheral vascular disease, unspecified; K57.92 Diverticulitis of intestine, part unspecified, without perforation or abscess without bleeding; F41.0 Panic disorder [episodic paroxysmal anxiety]; M85.80 Other specified disorders of bone density and structure, unspecified site; I25.10 Atherosclerotic heart disease of native coronary artery without angina pectoris; Z99.81 Dependence on supplemental oxygen; Z90.49 Acquired absence of other specified parts of digestive tract; Z90.710 Acquired absence of both cervix and uterus; Z87.891 Personal history of nicotine dependence; Z82.3 Family history of stroke; Z85.42 Personal history of malignant neoplasm of other parts of uterus; Z80.42 Family history of malignant neoplasm of prostate
CPT/HCPCS: 71046; 71250; 80048; 80048 91; 80076; 81003; 82436; 82533 91; 82803; 83735; 83880; 83930; 83935; 84133; 84300; 84443; 84484; 84550; 85025; 85027; 93005; 94640; 94640 76; 94668; 94760; 94799; 99202; J0692; J1644; J7030; J7512

== ENCOUNTER 2017-08-02 21:17 | Observation (INO) | payer OTHER ==
[~2017-08-02] VITALS: Ht 160 cm; Wt 69.7 kg
[~2017-08-02 21:17] MED LIST changes: +IMDUR30 MG PO; +MUCINEX600 MG PO; +OMNICEF300 MG PO; +SERTRALINE HCL25 MG PO; +XANAX0.5 MG PO
[2017-08-02 21:49] LABS: HEMATOCRIT 30.5 % (36.0-46.0); HEMOGLOBIN 10.8 G/DL (11.9-15.5); MCH 27.7 PG (29.0-34.0); MCHC 35.4 G/DL (30.0-36.0); MCV 78.2 FL (83-99); PLATELET COUNT 315 K/uL (156-360); RBC DIS.WIDTH-CV 23.9 % (11.8-14.6); RBC DIS.WIDTH-SD 64.9 % (39-53); WHITE BLOOD COUNT 9.4 K/uL (4.1-10.2)
[2017-08-02 22:00] LABS: CHLORIDE 96 mEq/L (99-109); POTASSIUM 3.8 mEq/L (3.7-5.4); SODIUM 129 mEq/L (136-147)
[2017-08-02 22:01] LABS: GLUCOSE 95 mg/dL (70-99)
[2017-08-02 22:05] LABS: CREATININE 0.7 mg/dL (0.6-1.3); GFR ESTIMATE (CALCULATED) > 59 mL/min/
[2017-08-02 22:06] LABS: UREA NITROGEN (BUN) 11 mg/dL (9-23)
[2017-08-02 22:11] LABS: TROP-I INTERPRETATION NEGATIVE; TROPONIN-I < 0.01 ng/mL (0.0-0.30)
[2017-08-02 22:50] LABS: ALBUMIN 3.9 g/dL (3.2-4.8)
[2017-08-02 22:52] LABS: TOTAL PROTEIN 6.1 g/dL (6.4-8.3)
[2017-08-02 22:54] LABS: TOTAL BILIRUBIN 0.3 mg/dL (0.0-1.0)
[2017-08-02 22:55] LABS: ALKALINE PHOSPHATASE 90 IU/L (3-129)
[2017-08-02 22:58] LABS: ALT (GPT) 22 IU/L (3-49); AST (GOT) 17 IU/L (2-34)
[2017-08-02 22:59] LABS: LIPASE 25 U/L (1.0-51.0)
[2017-08-03] MEDS ORDERED: SERTRALINE HCL25 MG PO (00:31)
[2017-08-03 03:49] VITALS: BP 138/64
[2017-08-03 04:22] LABS: APPEARANCE SL.HAZY ((CLEAR)); BILIRUBIN NEGATIVE; BLOOD NEGATIVE; COLOR STRAW ((YELLOW)); GLUCOSE (STRIP) NEGATIVE; KETONES NEGATIVE; LEUKOCYTES TRACE; NITRITE NEGATIVE; PROTEIN (STRIP) NEGATIVE; SPECIFIC GRAVITY 1.004 (1.000-1.030); UROBILINOGEN 0.2 MG/DL (0.2-1.0)
[2017-08-03 04:24] LABS: BACTERIA NONE SEEN /HPF; EPITHELIAL CELLS RARE /HPF; MUCUS NONE SEEN /LPF; RED BLOOD CELLS 0-5 /HPF (0-5); UCUL ADDED? NO; WHITE BLOOD CELLS 0-5 /HPF (0-5)
[2017-08-03 05:12] LABS: TROP-I INTERPRETATION NEGATIVE; TROPONIN-I 0.01 ng/mL (0.0-0.30)
[2017-08-03 08:36] VITALS: BP 125/61
[2017-08-03 08:44] LABS: CHLORIDE 104 MEQ/L (99-109)
[2017-08-03 08:49] LABS: CREATININE 1.9 MG/DL (0.6-1.3); GLUCOSE 163 mg/dL (70-99); UREA NITROGEN (BUN) 66 mg/dL (9-23)
[2017-08-03 08:50] LABS: GFR ESTIMATE (CALCULATED) 28 mL/min/; POTASSIUM 5.9 MEQ/L (3.7-5.4); SODIUM 142 MEQ/L (136-147)
[2017-08-03 11:25] VITALS: BP 138/62
[2017-08-03 13:01] LABS: TROP-I INTERPRETATION NEGATIVE; TROPONIN-I < 0.01 ng/mL (0.0-0.30)
[2017-08-03 13:11] LABS: CHLORIDE 95 MEQ/L (99-109); GLUCOSE 216 mg/dL (70-99)
[2017-08-03 13:12] LABS: CREATININE 0.7 MG/DL (0.6-1.3); GFR ESTIMATE (CALCULATED) > 59 mL/min/; POTASSIUM 4.4 MEQ/L (3.7-5.4); SODIUM 130 MEQ/L (136-147); UREA NITROGEN (BUN) 13 mg/dL (9-23)
[2017-08-03 15:25] VITALS: BP 131/60
[2017-08-03 19:00] VITALS: BP 130/60
[2017-08-04 00:28] VITALS: BP 112/49
[2017-08-04 03:30] VITALS: BP 106/51
[2017-08-04 05:35] LABS: HEMATOCRIT 28.8 % (36.0-46.0); HEMOGLOBIN 9.6 G/DL (11.9-15.5); MCH 26.9 PG (29.0-34.0); MCHC 33.3 G/DL (30.0-36.0); MCV 80.7 FL (83-99); PLATELET COUNT 359 K/uL (156-360); RBC DIS.WIDTH-CV 25.4 % (11.8-14.6); RBC DIS.WIDTH-SD 70.6 % (39-53); RED BLOOD COUNT 3.57 M/uL (3.80-5.20); WHITE BLOOD COUNT 15.6 K/uL (4.1-10.2)
[2017-08-04 05:56] LABS: CHLORIDE 97 MEQ/L (99-109); CREATININE 0.7 MG/DL (0.6-1.3); GFR ESTIMATE (CALCULATED) > 59 mL/min/; GLUCOSE 145 mg/dL (70-99); POTASSIUM 4.1 MEQ/L (3.7-5.4); SODIUM 130 MEQ/L (136-147); UREA NITROGEN (BUN) 15 mg/dL (9-23)
[2017-08-04 08:28] VITALS: BP 132/61
[2017-08-04] MEDS ORDERED: AZITHROMYCIN500 M1 PO (11:33)
[2017-08-04] MEDS ORDERED: XANAX0.5 MG PO (11:35)
[2017-08-04] MEDS ORDERED: PREDNISONE20 MG PO (11:35)
[2017-08-04 11:58] VITALS: BP 116/54
[2017-08-04 15:29] VITALS: BP 117/60
== END 2017-08-04 17:33 | disposition home or self-care (01) ==
LOC: EME 21:17 → EDOF 08-03 00:59 → ENRESERV 08-03 00:59 → EDOF 08-03 00:59 → CANRESERV 08-03 00:59 → 4SOUTH 08-03 00:59 → ENRESERV 08-03 01:01 → 4SOUTH 08-03 03:30 → ENPENDDIS 08-04 13:06 → 4SOUTH 08-04 17:33
PROVIDERS: Hospitalist; Internal Medicine; Nurse Practitioner Adult Health
DX: J44.1 Chronic obstructive pulmonary disease with (acute) exacerbation (principal); J44.0 Chronic obstructive pulmonary disease with (acute) lower respiratory infection; J20.9 Acute bronchitis, unspecified; Z87.891 Personal history of nicotine dependence; Z99.81 Dependence on supplemental oxygen; E87.1 Hypo-osmolality and hyponatremia; N17.9 Acute kidney failure, unspecified; F41.1 Generalized anxiety disorder; F41.0 Panic disorder [episodic paroxysmal anxiety]; I10 Essential (primary) hypertension; K21.9 Gastro-esophageal reflux disease without esophagitis; M85.80 Other specified disorders of bone density and structure, unspecified site; Z87.19 Personal history of other diseases of the digestive system; I73.9 Peripheral vascular disease, unspecified; K76.0 Fatty (change of) liver, not elsewhere classified; E78.5 Hyperlipidemia, unspecified; Z90.710 Acquired absence of both cervix and uterus; Z82.3 Family history of stroke; Z82.49 Family history of ischemic heart disease and other diseases of the circulatory system; Z80.42 Family history of malignant neoplasm of prostate
CPT/HCPCS: 71046; 71275; 80048; 80048 91; 80053; 81003; 83690; 84484; 85027; 87070; 87205; 93005; 94640; 94640 76; 94644; 94799; 99202; 99281; 99285; G0378; J1644; J2930; J7512

== ENCOUNTER 2017-08-09 20:34 | Emergency (ER) | payer OTHER ==
[~2017-08-09] VITALS: Ht 160 cm; Wt 71.3 kg
[2017-08-09 21:08] LABS: HEMATOCRIT 32.4 % (36.0-46.0); HEMOGLOBIN 11.3 G/DL (11.9-15.5); MCH 27.5 PG (29.0-34.0); MCHC 34.9 G/DL (30.0-36.0); MCV 78.8 FL (83-99); PLATELET COUNT 417 K/uL (156-360); RBC DIS.WIDTH-CV 23.9 % (11.8-14.6); RBC DIS.WIDTH-SD 65.5 % (39-53); RED BLOOD COUNT 4.11 M/uL (3.80-5.20)
[2017-08-09 21:27] LABS: CHLORIDE 97 mEq/L (99-109); SODIUM 133 mEq/L (136-147)
[2017-08-09 21:29] LABS: GLUCOSE 113 mg/dL (70-99)
[2017-08-09 21:32] LABS: POTASSIUM 3.2 mEq/L (3.7-5.4); SERUM ETHYL ALCOHOL < 10 mg/dL
[2017-08-09 21:33] LABS: CREATININE 0.7 mg/dL (0.6-1.3); GFR ESTIMATE (CALCULATED) > 59 mL/min/
[2017-08-09 21:34] LABS: UREA NITROGEN (BUN) 11 mg/dL (9-23)
[2017-08-09 22:55] LABS: AMPHETAMINE NEGATIVE (500 ng/mL); BARBITURATES NEGATIVE (200 ng/mL); BENZODIAZEPINES PRESUMPTIVE POSITIVE (150 ng/mL); BUPRENORPHINE NEGATIVE (10 ng/mL); COCAINE NEGATIVE (150 ng/mL); METHADONE NEGATIVE (200 ng/mL); METHAMPHETAMINE NEGATIVE (500 ng/mL); OPIATES (MORPHINE) NEGATIVE (100 ng/mL); OXYCODONE NEGATIVE (100 ng/mL); PHENCYCLIDINE NEGATIVE (25 ng/mL); PROPOXYPHENE NEGATIVE (300 ng/mL); THC CANNABINOIDS NEGATIVE (50 ng/mL); TRICYCLIC ANTIDEPRESSANTS NEGATIVE (300 ng/mL)
[2017-08-09 23:54] LABS: BENZODIAZEPINES, URINE SCREEN Negative (200 ng/mL)
[2017-08-10 00:04] VITALS: BP 160/79
== END 2017-08-10 00:11 | disposition home or self-care (01) ==
LOC: EME 20:34
DX: F41.1 Generalized anxiety disorder (principal); G47.00 Insomnia, unspecified; Z04.6 Encounter for general psychiatric examination, requested by authority; F32.9 Major depressive disorder, single episode, unspecified; J44.9 Chronic obstructive pulmonary disease, unspecified; I10 Essential (primary) hypertension; K21.9 Gastro-esophageal reflux disease without esophagitis; Z85.42 Personal history of malignant neoplasm of other parts of uterus; I25.10 Atherosclerotic heart disease of native coronary artery without angina pectoris; Z99.81 Dependence on supplemental oxygen; Z79.82 Long term (current) use of aspirin; Z87.891 Personal history of nicotine dependence
CPT/HCPCS: 80048; 84999; 85027; 90837; 99281; 99285; G0480

== ENCOUNTER 2017-08-12 21:50 | Inpatient (IN) | payer OTHER ==
[~2017-08-12] VITALS: Ht 160 cm; Wt 70.0 kg
[2017-08-12 22:33] LABS: BASOPHIL (%) 0.2 % (0-1); EOSINOPHIL (%) 0 % (0-5); HEMATOCRIT 30.1 % (36.0-46.0); HEMOGLOBIN 10.6 G/DL (11.9-15.5); IMMATURE GRANULOCYTE (%) 1.9 % (0.0-0.7); LYMPHOCYTE COUNT 0.3 K/uL (1.0-2.8); MCH 27.8 PG (29.0-34.0); MCHC 35.2 G/DL (30.0-36.0); MONOCYTE (%) 2.9 % (3-12); MONOCYTE COUNT 0.4 K/uL (0-0.8); NEUTROPHIL COUNT 12.1 K/uL (1.8-6.4); PLATELET COUNT 447 K/uL (156-360); RBC DIS.WIDTH-CV 23.8 % (11.8-14.6); RBC DIS.WIDTH-SD 66.1 % (39-53); RED BLOOD COUNT 3.81 M/uL (3.80-5.20)
[2017-08-12 22:34] LABS: CARBON DIOXIDE (BICARBONATE) 25.6 MEQ/L (20-31)
[2017-08-12 22:48] LABS: CHLORIDE 97 mEq/L (99-109); POTASSIUM 3.7 mEq/L (3.7-5.4); SODIUM 130 mEq/L (136-147)
[2017-08-12 22:49] LABS: GLUCOSE 149 mg/dL (70-99)
[2017-08-12 22:53] LABS: CREATININE 0.8 mg/dL (0.6-1.3); GFR ESTIMATE (CALCULATED) > 59 mL/min/
[2017-08-12 22:54] LABS: UREA NITROGEN (BUN) 12 mg/dL (9-23)
[2017-08-12 22:57] LABS: TROP-I INTERPRETATION NEGATIVE; TROPONIN-I < 0.01 ng/mL (0.0-0.30)
[2017-08-12 23:55] LABS: C DIFF TOXIN NEGATIVE (NEGATIVE)
[2017-08-13 00:45] LABS: APPEARANCE CLEAR ((CLEAR)); BILIRUBIN NEGATIVE; BLOOD NEGATIVE; COLOR YELLOW ((YELLOW)); GLUCOSE (STRIP) 150; KETONES NEGATIVE; LEUKOCYTES SMALL; NITRITE NEGATIVE; PROTEIN (STRIP) NEGATIVE; SPECIFIC GRAVITY 1.021 (1.000-1.030); UROBILINOGEN 0.2 MG/DL (0.2-1.0)
[2017-08-13 00:55] LABS: BACTERIA RARE /HPF; EPITHELIAL CELLS 2+ /HPF; MUCUS TRACE /LPF; RED BLOOD CELLS 0-5 /HPF (0-5); UCUL ADDED? NO; WHITE BLOOD CELLS 0-5 /HPF (0-5)
[2017-08-13] MEDS ORDERED: DELTASONE20 M1 PO (01:35)
[2017-08-13] MEDS ORDERED: TRAZODONE HCL50 MG PO (01:35)
[2017-08-13] MEDS ORDERED: BUSPAR5 MG PO (01:35)
[2017-08-13 05:47] VITALS: BP 174/76
[2017-08-13 08:31] LABS: HEMATOCRIT 32.5 % (36.0-46.0); HEMOGLOBIN 10.9 G/DL (11.9-15.5); WHITE BLOOD COUNT 12.8 K/uL (4.1-10.2)
[2017-08-13 08:32] LABS: MCH 26.6 PG (29.0-34.0); MCHC 33.5 G/DL (30.0-36.0); MCV 79.3 FL (83-99); PLATELET COUNT 439 K/uL (156-360)
[2017-08-13 08:54] LABS: ALBUMIN 3.6 G/DL (3.2-4.8); ALKALINE PHOSPHATASE 87 IU/L (3-129); ALT (GPT) 17 IU/L (3-49); AST (GOT) 10 IU/L (2-34); CHLORIDE 98 MEQ/L (99-109); CREATININE 0.6 MG/DL (0.6-1.3); GFR ESTIMATE (CALCULATED) > 59 mL/min/; GLUCOSE 124 mg/dL (70-99); POTASSIUM 3.2 MEQ/L (3.7-5.4); SODIUM 134 MEQ/L (136-147); TOTAL BILIRUBIN 0.4 MG/DL (0.0-1.0); TOTAL PROTEIN 5.7 G/DL (6.4-8.3); UREA NITROGEN (BUN) 9 mg/dL (9-23)
[2017-08-13 09:30] VITALS: BP 161/69
[2017-08-13 11:57] VITALS: BP 130/57
[2017-08-13 21:55] VITALS: BP 148/67
[2017-08-14 04:11] VITALS: BP 113/57
[2017-08-14 08:30] VITALS: BP 122/60
[2017-08-14 11:17] LABS: HEMATOCRIT 32.5 % (36.0-46.0); HEMOGLOBIN 10.9 G/DL (11.9-15.5); MCH 27.3 PG (29.0-34.0); MCHC 33.5 G/DL (30.0-36.0); MCV 81.5 FL (83-99); PLATELET COUNT 504 K/uL (156-360); RED BLOOD COUNT 3.99 M/uL (3.80-5.20); WHITE BLOOD COUNT 20.5 K/uL (4.1-10.2)
[2017-08-14 11:26] VITALS: BP 104/50
[2017-08-14 11:46] LABS: BASOPHIL (%) 0.1 % (0-1); EOSINOPHIL (%) 0 % (0-5); IMMATURE GRANULOCYTE (%) 2.8 % (0.0-0.7); LYMPHOCYTE (%) 1.7 % (15-42); LYMPHOCYTE COUNT 0.3 K/uL (1.0-2.8); MONOCYTE (%) 4.1 % (3-12); MONOCYTE COUNT 0.8 K/uL (0-0.8); NEUTROPHIL (%) 91.3 % (45-76); NEUTROPHIL COUNT 18.7 K/uL (1.8-6.4)
[2017-08-14 11:48] LABS: CHLORIDE 103 MEQ/L (99-109); CREATININE 0.6 MG/DL (0.6-1.3); GFR ESTIMATE (CALCULATED) > 59 mL/min/; GLUCOSE 172 mg/dL (70-99); POTASSIUM 3.9 MEQ/L (3.7-5.4); SODIUM 137 MEQ/L (136-147); UREA NITROGEN (BUN) 12 mg/dL (9-23)
[2017-08-14 15:43] VITALS: BP 108/62
[2017-08-14 19:53] VITALS: BP 132/61
[2017-08-15 00:30] VITALS: BP 126/58
[2017-08-15 05:36] LABS: HEMATOCRIT 32.5 % (36.0-46.0); HEMOGLOBIN 10.5 G/DL (11.9-15.5); MCH 26.3 PG (29.0-34.0); MCHC 32.3 G/DL (30.0-36.0); MCV 81.5 FL (83-99); PLATELET COUNT 502 K/uL (156-360); RED BLOOD COUNT 3.99 M/uL (3.80-5.20); WHITE BLOOD COUNT 21.8 K/uL (4.1-10.2)
[2017-08-15 06:05] LABS: CHLORIDE 103 MEQ/L (99-109); CREATININE 0.6 MG/DL (0.6-1.3); GFR ESTIMATE (CALCULATED) > 59 mL/min/; GLUCOSE 135 mg/dL (70-99); POTASSIUM 3.9 MEQ/L (3.7-5.4); SODIUM 140 MEQ/L (136-147); UREA NITROGEN (BUN) 15 mg/dL (9-23)
[2017-08-15 09:15] VITALS: BP 125/59
[2017-08-15] MEDS ORDERED: MIRTAZAPINE7.5 MG PO (11:53)
[2017-08-15] MEDS ORDERED: PREDNISONE10 MG PO (11:56)
[2017-08-15] MEDS ORDERED: CLONAZEPAM0.5 MG PO (11:56)
[2017-08-15] MEDS ORDERED: AMBIEN5 MG PO (12:02)
[2017-08-15 12:12] VITALS: BP 122/56
== END 2017-08-15 13:10 | disposition home health service (06) | DRG 191 ==
LOC: EME 21:50 → EDOF 08-13 02:48 → ENRESERV 08-13 02:51 → 4SOUTH 08-13 05:26 → ENPENDDIS 08-15 → 4SOUTH 08-15 13:10
PROVIDERS: Emergency Medicine; Internal Medicine; Physician Assistant Medical
DX: J44.1 Chronic obstructive pulmonary disease with (acute) exacerbation (principal); J20.9 Acute bronchitis, unspecified; Z99.81 Dependence on supplemental oxygen; J44.0 Chronic obstructive pulmonary disease with (acute) lower respiratory infection; F41.1 Generalized anxiety disorder; I10 Essential (primary) hypertension; K21.9 Gastro-esophageal reflux disease without esophagitis; E78.5 Hyperlipidemia, unspecified; I73.9 Peripheral vascular disease, unspecified; Z87.891 Personal history of nicotine dependence; F41.0 Panic disorder [episodic paroxysmal anxiety]; E87.3 Alkalosis; I25.10 Atherosclerotic heart disease of native coronary artery without angina pectoris; M85.80 Other specified disorders of bone density and structure, unspecified site; G47.00 Insomnia, unspecified; Z85.42 Personal history of malignant neoplasm of other parts of uterus; E66.9 Obesity, unspecified; Z68.27 Body mass index [BMI] 27.0-27.9, adult
CPT/HCPCS: 71046; 80048; 80053; 81003; 82803; 83630; 84484; 85025; 85027; 87493; 87502; 87506; 90837; 93005; 94640; 94640 76; 94760; 94799; 99202; 99281; 99285; J1644; J2405; J2930; J7030; J7512